=== PATIENT | female | born 1955 | race Caucasian/White ===

== ENCOUNTER 2016-08-06 11:45 | Emergency (ER) | payer BC ==
[2016-08-06] MEDS ORDERED: METHYLPREDNISOLONE PF 125MG/VIAL IVP ONE (13:48)
[2016-08-06] MEDS ORDERED: IPRATROPIUM/ALBUTEROL (0.5MG/3MG) NEB INH ONE (13:51)
[2016-08-06 14:49] LABS: BASO % 0.6 % (0-6); EOS % 7.8 % (0-6); GRAN % 57.1 % (47-80); HEMATOCRIT 40.3 % (35.0-47.0); LYMPH % 26.3 % (16-45); MEAN CELL VOLUME 89.2 fl (81-97); MEAN CORPUSCULAR HEMOGLOBIN 28.8 pg (27-33); MEAN CORPUSCULAR HGB CONC 32.3 g/dl (32-36); MEAN PLATELET VOLUME 9.6 fl (7.4-10.4); MONO % 8.2 % (0-9); PLATELET COUNT 288 K/uL (130-400); RED BLOOD COUNT 4.52 M/uL (3.80-5.40); RED CELL DISTRIBUTION WIDTH 16.4 % (11.5-14.5); WHITE BLOOD COUNT W/O DIFF 7.2 K/uL (4.2-12.2)
--- NOTE | 2016-08-06 14:59 | Emergency Department Record ---
History of Present Illness - General Chief Complaint: Cough Stated Complaint: COUGH Time Seen by Provider: 08/06/16 13:42 Source: Patient Mode of Arrival: Ambulatory Limitations: No limitations - History of Present Illness Initial Comments: pt has been sick for a month and feels she is not getting any better. she has a prod green cough, sob, rib pain from coughing. she went to an urgent care a week ago and is on levaquin, steroids. MD Complaint: Cough, Nasal congestion, Rhinorrhea Onset/Timin -: Month(s) Severity: Mild Consistency: Constant Context: Sick contacts Associated Symptoms: Cough, Hoarseness, Nasal congestion, Rhinorrhea, Shortness of breath - Related Data Home Medications Medication Instructions Recorded Confirmed Last Taken Aspirin [Aspir-Low] 81 mg PO DAILY 07/16/16 08/06/16 08/06/16 Chlorthalidone 25 mg PO DAILY 07/16/16 08/06/16 08/06/16 Levothyroxine Sodium [Synthroid] 112 mcg PO DAILY 07/16/16 08/06/16 08/06/16 Magnesium Oxide [Meza] 500 mg PO DAILY 07/16/16 08/06/16 08/06/16 Potassium Chloride [Klor-Con] 20 meq PO DAILY 07/16/16 08/06/16 08/06/16 Propranolol HCl [Inderal LA] 160 mg PO DAILY 07/16/16 08/06/16 08/06/16 Risperidone [Risperdal] 1 mg PO DAILY 07/16/16 08/06/16 08/05/16 Sertraline HCl [Zoloft] 25 mg PO DAILY 07/16/16 08/06/16 08/05/16 Albuterol Sulfate [Ventolin Hfa] 1 - 2 puff IH .EVERY 4-6 HOURS PRN 08/06/1606/2308/06/16 Levofloxacin [Levaquin Tab] 500 mg PO DAILY 08/06/16 08/06/16 08/06/16 Previous Rx's Medication Instructions Recorded Fluticasone Propionate [Flonase] 2 spray EACH NARES DAILY #1 bottle 07/16/16 Doxycycline Hyclate [Doxycycline] 100 mg PO BID #14 cap 08/06/16 Allergies Allergy/AdvReac Type Severity Reaction Status Date / Time Iodinated Contrast Media - Allergy Severe HIVES Verified 08/06/16 13:14 Oral and Penicillins Allergy Severe HIVES Verified 08/06/16 13:14 Travel Screening - Travel/Exposure Within Last 30 Days Have you traveled within the last 30 days?: No Review of Systems Reviewed: No additional complaints except as noted below Constitutional: Reports: As per HPI. Denies: Chills, Fever, Malaise, Night sweats, Weakness, Weight change Eyes: Reports: As per HPI. Denies: Eye discharge, Eye pain, Photophobia, Vision change ENT: Reports: As per HPI. Denies: Congestion, Dental pain, Ear pain, Epistaxis , Hearing loss, Throat pain Respiratory: Reports: As per HPI. Denies: Cough, Dyspnea, Hemoptysis, Stridor, Wheezes Cardiovascular: Reports: As per HPI. Denies: Arrhythmia, Chest pain, Dyspnea on exertion, Edema, Murmurs, Orthopnea, Palpitations, Paroxysmal nocturnal dyspnea, Rheumatic Fever, Syncope Endocrine: Reports: As per HPI. Denies: Fatigue, Heat or cold intolerance, Polydipsia, Polyuria Gastrointestinal: Reports: As per HPI. Denies: Abdominal pain, Constipation, Diarrhea, Hematemesis, Hematochezia, Melena, Nausea, Vomiting Genitourinary: Reports: As per HPI. Denies: Abnormal menses, Discharge, Dyspareunia, Dysuria, Frequency, Hematuria, Incontinence, Retention, Urgency Musculoskeletal: Reports: As per HPI. Denies: Arthralgia, Back pain, Gout, Joint swelling, Myalgia, Neck pain Skin: Reports: As per HPI. Denies: Bruising, Change in color, Change in hair/ nails, Lesions, Pruritus, Rash Neurological: Reports: As per HPI. Denies: Abnormal gait, Confusion, Headache, Numbness, Paresthesias, Seizure, Tingling, Tremors, Vertigo, Weakness Psychiatric: Reports: As per HPI. Denies: Anxiety, Auditory hallucinations, Depression, Homicidal thoughts, Suicidal thoughts, Visual hallucinations Hematological/Lymphatic: Reports: As per HPI. Denies: Anemia, Blood Clots, Easy bleeding, Easy bruising, Swollen glands Past Medical History - SOCIAL HISTORY Smoking Status: Never smoker Alcohol Use: None Drug Use: None - RESPIRATORY Hx Respiratory Disorders: No Hx Sleep Apnea: Yes Hx of CPAP: Yes - CARDIOVASCULAR Hx Cardio Disorders: Yes Hx Hypertension: Yes - NEURO Hx Neuro Disorders: Yes Hx Headaches: Yes - GI Hx GI Disorders: Yes Hx Reflux: Yes Hx Ulcer: Yes - Hx Genitourinary Disorders: No - ENDOCRINE Hx Endocrine Disorders: Yes Hx Diabetes: (pre-diabetic) Hx Thyroid Disease: Yes - MUSCULOSKELETAL Hx Musculoskeletal Disorders: No - PSYCH Hx Psych Problems: No - HEMATOLOGY/ONCOLOGY Hx Hematology/Oncology Disorders: No Family Medical History Any Significant Family History?: No Physical Exam - General General Appearance: Alert, Oriented x3, Cooperative, Mild distress - Head Head exam: Normal inspection - Eye Eye exam: Normal appearance, PERRL, EOMI Pupils: Normal accommodation - ENT ENT exam: Normal exam, Mucous membranes moist, Normal external ear exam, Normal orophraynx, TM's normal bilaterally Ear exam: Normal external inspection. negative: External canal tenderness Nasal Exam: Normal inspection. negative: Discharge, Sinus tenderness Mouth exam: Normal external inspection, Tongue normal Teeth exam: Normal inspection. negative: Dental caries Throat exam: Normal inspection. negative: Tonsillar erythema, Tonsillar exudate - Neck Neck exam: Normal inspection, Full ROM. negative: Tenderness - Respiratory Respiratory exam: Wheezes. negative: Respiratory distress - Cardiovascular Cardiovascular Exam: Regular rate, Normal rhythm, Normal heart sounds - GI/Abdominal GI/Abdominal exam: Soft, Normal bowel sounds. negative: Tenderness - Rectal Rectal exam: Deferred - exam: Deferred - Extremities Extremities exam: Normal inspection, Full ROM, Normal capillary refill. negative: Tenderness - Back Back exam: Reports: Normal inspection, Full ROM. Denies: Muscle spasm, Rash noted, Tenderness - Neurological Neurological exam: Alert, CN II-XII intact, Normal gait, Oriented X3 - Psychiatric Psychiatric exam: Normal affect, Normal mood - Skin Skin exam: Dry, Intact, Normal color, Warm Course Vital Signs 08/06/16 08/06/16 13:06 14:25 Temperature 98.0 F Pulse Rate 71 66 Respiratory 20 16 Rate Blood Pressure 130/80 Pulse Ox 97 96 Medical Decision Making - Lab Data Result diagrams: 08/06/16 14:20 08/06/16 14:20 Disposition Disposition: Discharge Clinical Impression: Pneumonia Qualifiers: Pneumonia type: due to unspecified organism Laterality: right Lung location: lower lobe of lung Qualified Code(s): J18.1 - Lobar pneumonia, unspecified organism Disposition: Home, Self-Care Condition: (1) Good Instructions: Community-acquired Pneumonia (ED) Additional Instructions: follow up with family doctor. return sooner if worse Prescriptions: Doxycycline Hyclate [Doxycycline] 100 mg PO BID #14 cap Forms: Patient Portal Access
[2016-08-06 15:00] LABS: ANION GAP 9.1 (7-16); BLOOD UREA NITROGEN 17 mg/dL (7-17); CARBON DIOXIDE 32.9 mmol/L (22-30); CREATININE 0.8 mg/dL (0.52-1.04); EST GLOMERULAR FILTRATION RATE > 60 ml/min; GLUCOSE,RANDOM 100 mg/dL (70-110)
[2016-08-06] MEDS ORDERED: POTASSIUM CHLORIDE 20 MEQ TABLET PO ONE (15:20)
== END 2016-08-06 16:26 | disposition home or self-care (01) ==
LOC: ER 11:45
DX: J18.1 Lobar pneumonia, unspecified organism (principal); R06.02 Shortness of breath
CPT/HCPCS: 71020; 80048; 83880; 85025; 85379; 94640; 96374; 99284; J2930

== ENCOUNTER 2016-08-09 15:42 | Inpatient (IN) | payer BC ==
[2016-08-09] MEDS ORDERED: 0.9 % SODIUM CHLORIDE 1000ML 1,000 ML IV PRN (16:06)
[2016-08-09] MEDS: CEFTRIAXONE SODIUM 1 GM in 0.9 % SODIUM CHLORIDE 100ML 100 ML IVPB SCH (17:21)
[2016-08-09 17:40] LABS: BASO % 0.7 % (0-6); EOS % 7.6 % (0-6); GRAN % 52.1 % (47-80); HEMATOCRIT 41.3 % (35.0-47.0); HEMOGLOBIN 13.6 gm/dl (11.6-16.0); LYMPH % 32.7 % (16-45); MEAN CELL VOLUME 89.6 fl (81-97); MEAN CORPUSCULAR HEMOGLOBIN 29.5 pg (27-33); MEAN CORPUSCULAR HGB CONC 32.9 g/dl (32-36); MEAN PLATELET VOLUME 9.8 fl (7.4-10.4); MONO % 6.9 % (0-9); PLATELET COUNT 287 K/uL (130-400); RED BLOOD COUNT 4.61 M/uL (3.80-5.40); RED CELL DISTRIBUTION WIDTH 16.7 % (11.5-14.5); WHITE BLOOD COUNT W/O DIFF 7.4 K/uL (4.2-12.2)
[2016-08-09 17:47] LABS: ALB/GLOB RATIO 1.4 (1.1-1.8); ALBUMIN 4.6 gm/dL (3.5-5.0); ALKALINE PHOSPHATASE 78 U/L (38-126); ALT/SGPT 39 U/L (9-52); ANION GAP 11.1 (7-16); AST/SGOT 33 U/L (14-36); BILIRUBIN,TOTAL 0.48 mg/dL (0.2-1.3); BLOOD UREA NITROGEN 16 mg/dL (7-17); C-REACTIVE PROTEIN 1.7 mg/dL (0.0-0.9); CARBON DIOXIDE 32.9 mmol/L (22-30); CREATININE 0.8 mg/dL (0.52-1.04); EST GLOMERULAR FILTRATION RATE > 60 ml/min; GLUCOSE,RANDOM 97 mg/dL (70-110); TOTAL PROTEIN 7.8 gm/dL (6.3-8.2)
[2016-08-09 17:48] LABS: INFLUENZA A NEGATIVE (NEGATIVE); INFLUENZA B NEGATIVE (NEGATIVE)
[2016-08-09] MEDS ORDERED: PATIENT OWN MED: PO SCH (18:45)
[2016-08-09] MEDS: AZITHROMYCIN 500 MG in 0.9 % SODIUM CHLORIDE 250ML 250 ML IVPB SCH (18:56)
[2016-08-09] MEDS ORDERED: ATORVASTATIN 20 MG TABLET PO SCH ×2 (22:00)
[2016-08-09] MEDS ORDERED: RISPERIDONE 1 MG PO SCH (22:00)
[2016-08-09] MEDS: PATIENT OWN MED: ASPIRIN 81 MG PO SCH (22:20)
[2016-08-09] MEDS: TEMAZEPAM 15 MG CAPSULE PO PRN (22:25)
[2016-08-09] MEDS: IPRATROPIUM/ALBUTEROL (0.5MG/3MG) NEB INH PRN (22:28)
[2016-08-10] MEDS: CEFTRIAXONE SODIUM 1 GM in 0.9 % SODIUM CHLORIDE 100ML 100 ML IVPB SCH ×2 (04:46→16:20)
[2016-08-10] MEDS: IPRATROPIUM/ALBUTEROL (0.5MG/3MG) NEB INH PRN ×4 (06:09→21:50)
[2016-08-10 06:22] LABS: BASO % 0.7 % (0-6); EOS % 7.9 % (0-6); GRAN % 42.5 % (47-80); HEMATOCRIT 37.2 % (35.0-47.0); HEMOGLOBIN 12.2 gm/dl (11.6-16.0); LYMPH % 39.5 % (16-45); MEAN CELL VOLUME 90.5 fl (81-97); MEAN CORPUSCULAR HEMOGLOBIN 29.7 pg (27-33); MEAN CORPUSCULAR HGB CONC 32.8 g/dl (32-36); MEAN PLATELET VOLUME 9.6 fl (7.4-10.4); MONO % 9.4 % (0-9); PLATELET COUNT 238 K/uL (130-400); RED BLOOD COUNT 4.11 M/uL (3.80-5.40); RED CELL DISTRIBUTION WIDTH 16.7 % (11.5-14.5); WHITE BLOOD COUNT W/O DIFF 6.7 K/uL (4.2-12.2)
[2016-08-10 06:37] LABS: ALB/GLOB RATIO 1.3 (1.1-1.8); ALBUMIN 3.7 gm/dL (3.5-5.0); ALKALINE PHOSPHATASE 66 U/L (38-126); ALT/SGPT 36 U/L (9-52); ANION GAP 9.2 (7-16); AST/SGOT 29 U/L (14-36); BILIRUBIN,TOTAL 0.33 mg/dL (0.2-1.3); BLOOD UREA NITROGEN 13 mg/dL (7-17); CARBON DIOXIDE 27.8 mmol/L (22-30); CREATININE 0.7 mg/dL (0.52-1.04); EST GLOMERULAR FILTRATION RATE > 60 ml/min; GLUCOSE,RANDOM 89 mg/dL (70-110); TOTAL PROTEIN 6.6 gm/dL (6.3-8.2)
[2016-08-10] MEDS: PATIENT OWN MED: LEVOTHYROXINE 112 MCG PO SCH (06:48)
--- NOTE | 2016-08-10 07:23 | CT SCAN REPORT ---
EXAM: CT OF THE CHEST WITHOUT CONTRAST HISTORY: CHEST CONGESTION. TECHNIQUE: CT of the chest without contrast was obtained. Comparison: Chest x-ray from 08/06/16. FINDINGS: Evaluation of the mediastinum and hilum is limited due to lack of IV contrast. No convincing evidence for mediastinal or hilar adenopathy. Minimal coronary artery calcification. The heart and pericardium are otherwise unremarkable. Limited evaluation of the upper abdomen shows post cholecystectomy changes. Nodularity of the left adrenal gland measuring 1.4 x 1.3 cm. The osseous structures are grossly intact. There is no pneumothorax. The visualized airways are patent. Subsegmental atelectasis within the lingula. Minimal ground glass opacity with reticulonodular change in the posterior right lung base. No effusion. IMPRESSION: 1. MINIMAL RETICULONODULAR CHANGE AND GROUND GLASS OPACITY IN THE POSTERIOR RIGHT LUNG BASE CONSISTENT WITH MINOR PNEUMONITIS. RECOMMEND CONTINUED FOLLOW- UP UNTIL RESOLUTION. 2. 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 THIS COULD BE FURTHER ASSESSED NONEMERGENTLY WITH MRI. JOB NUMBER: [id number] [facility]
--- NOTE | 2016-08-10 07:40 | History & Physical ---
History of Present Illness - Date of Service Date of Service for History & Physical: 08/10/16 - History of Present Illness Admitting Diagnosis: pneumonia; Failed outpatient treatment History of Present Illness: 60yo female with CC of cough with shortness of breath and fatigue. She has a history of HTN, CLAUDIA, GERD, migraines, hypothyroidism, melanoma. She was diagnosed with pneumonia about 3-4 weeks ago. Patient presented to [facility] last evening with fatigue, cough and shortness of breath. She had been diagnosed at another urgent care with pneumonia about 3-4 weeks ago. she was started on levaquin and steroids. She completed both of those without any improvement in her symptoms. During that time, she also visited her father in his [facility] who was sick with pneumonia and flu. She decided to go to the ED 4 days ago because she was not feeling any better. She had a repeat CXR that showed persistent right posterior lobe infiltrate. her D- dimer was negative. WBC count was normal. she was prescribed doxycycline and sent home. While in [facility], patient continued to feel short of breath and having cough with wheezing. She had tried to use albuterol inhaler at home but was having minimal relief. continued to report chest congestion, but not getting anything up with her cough. She was also feeling very fatigued and hadn't been sleeping well. She was admitted for pneumonia with failed outpatient therapy. 08/10/16- Patient states she is feeling better today. She says she slept very well last night for the first time in 2 weeks. She is feeling more energetic this morning. She is not feeling nearly as short of breath as yesterday. She is still coughing but not getting anything up with the cough. She says she isn't hearing her self breath like she was yesterday. Said she could hear her chest rattling. She says she has started a new diet recently that requires her to drink a lot more water than she has. nursing states she drank at least 80oz of water last night alone. she has been taking potassium pills at home. She has reported looser than normal stool since starting this new diet. Travel Screening - Travel/Exposure Within Last 30 Days Have you traveled within the last 30 days?: No - Travel/Exposure Within Last Year Have you traveled outside the [place] in the last year?: No - Additonal Travel Details Have you been exposed to anyone with a communicable illness?: No Review of Systems Constitutional: Reports: Malaise. Denies: Chills, Fever Eyes: Denies: Eye pain ENT: Denies: Congestion, Ear pain, Throat pain Respiratory: Reports: Cough, Dyspnea, Wheezes. Denies: Stridor Cardiovascular: Denies: Arrhythmia, Chest pain, Edema, Palpitations, Syncope Endocrine: Reports: Fatigue Gastrointestinal: Denies: Abdominal pain, Constipation, Diarrhea, Nausea, Vomiting Musculoskeletal: Denies: Arthralgia, Back pain Skin: Denies: Bruising Neurological: Denies: Abnormal gait, Headache, Tingling Past Medical History - SOCIAL HISTORY Smoking Status: Never smoker Alcohol Use: Rare Drug Use: None - RESPIRATORY Hx Respiratory Disorders: Yes Hx Bronchitis: Yes (hx) Hx Pneumonia: Yes Hx Sleep Apnea: Yes Hx of CPAP: Yes (does not use) - CARDIOVASCULAR Hx Cardio Disorders: Yes Hx Hypertension: Yes (meds) Hx Irregular Heartbeat: Yes - NEURO Hx Neuro Disorders: Yes Hx Headaches: Yes (migraine) - GI Hx GI Disorders: Yes Hx Reflux: Yes Hx Ulcer: Yes - Hx Genitourinary Disorders: No Comment:: leak with coughing - ENDOCRINE Hx Endocrine Disorders: Yes Hx Diabetes: (pre-diabetic) Hx Thyroid Disease: Yes Comment:: thyroid removed, takes meds - MUSCULOSKELETAL Hx Musculoskeletal Disorders: No - PSYCH Hx Psych Problems: No - HEMATOLOGY/ONCOLOGY Hx Hematology/Oncology Disorders: No Hx Cancer: Yes (melanoma lt inner thigh removed 2015) Family Medical History Any Significant Family History?: Yes Hx HTN: Father, Mother H&P Meds/Allergies - Allergies Allergies: Allergies Allergy/AdvReac Type Severity Reaction Status Date / Time Iodinated Contrast Media - Allergy Severe HIVES Unverified 08/09/16 14:43 Oral and Penicillins Allergy Severe HIVES Unverified 08/09/16 14:43 - Home Medications Home Medications Medication Instructions Recorded Confirmed Last Taken Aspirin [Aspir-Low] 81 mg PO DAILY 07/16/16 08/09/16 08/06/16 Chlorthalidone 25 mg PO DAILY 07/16/16 08/09/16 08/06/16 Levothyroxine Sodium [Synthroid] 112 mcg PO DAILY 07/16/16 08/09/16 08/06/16 Magnesium Oxide [Meza] 500 mg PO DAILY 03/04/2208/09/16 08/06/16 Potassium Chloride [Klor-Con] 20 meq PO BID 07/16/16 08/09/16 08/06/16 Propranolol HCl [Inderal LA] 160 mg PO DAILY 07/16/16 08/09/16 08/06/16 Sertraline HCl [Zoloft] 50 mg PO DAILY 07/16/16 08/09/16 08/05/16 Albuterol Sulfate [Ventolin Hfa] 1 - 2 puff IH .EVERY 4-6 HOURS PRN 08/06/1609/2008/06/16 Atorvastatin Calcium 10 mg PO DAILY 08/09/16 08/09/16 Unknown Temazepam [Restoril] 15 mg PO QHS 08/09/16 08/09/16 Unknown Previous Rx's Medication Instructions Recorded Fluticasone Propionate [Flonase] 2 spray EACH NARES DAILY #1 bottle 07/16/16 Doxycycline Hyclate [Doxycycline] 100 mg PO BID #14 cap 08/06/16 - Active Medications Active Medications: Current Medications Albuterol/Ipratropium (Duoneb) 3 ml INH RESP.Q4H PRN PRN Reason: Wheezing Last Admin: 08/10/16 06:09 Dose: 3 ml Atorvastatin Calcium (Lipitor) 10 mg PO QHS [facility] Last Admin: 08/09/16 22:42 Dose: 10 mg Azithromycin 500 mg/ Sodium (Chloride) 250 mls @ 250 mls/hr IVPB Q24H [facility] Stop: 08/14/16 17:01 Last Admin: 08/09/16 18:56 Dose: 250 mls/hr Ceftriaxone Sodium 1 gm/ (Sodium Chloride) 100 mls @ 100 mls/hr IVPB Q12H [facility] Stop: 08/14/16 16:16 Last Admin: 08/10/16 04:46 Dose: 100 mls/hr Sodium Chloride () 1,000 mls @ 75 mls/hr IV .[id number] PRN PRN Reason: LARGE VOLUME IV Last Admin: 08/09/16 17:21 Dose: 75 mls/hr Patient Own Med: (Aspirin 81 Mg) 1 each PO DAILY [facility] Last Admin: 08/09/16 22:20 Dose: 1 each Patient Own Med: (Chlorthalidone 25 Mg) 1 each PO DAILY [facility] Patient Own Med: Levothyroxine 112 Mcg 1 each PO DAILYTHY [facility] Last Admin: 08/10/16 06:48 Dose: 1 each Patient Own Med: Magnesium Oxide 500 Mg 1 each PO DAILY [facility] Patient Own Med: Propranolol Er 160 Mg 1 each PO DAILY [facility] Patient Own Med: (Potassium 20 Meq) 1 each PO BID [facility] Patient Own Med: (Risperidone 1 Mg) 1 each PO QHS [facility] Patient Own Med: (Sertraline 25 Mg) 1 each PO DAILY [facility] Patient Own Medication () 2 each PO NOW [facility] Last Admin: 08/09/16 19:02 Dose: 2 each Temazepam (Restoril) 15 mg PO QHS PRN PRN Reason: INSOMNIA Last Admin: 08/09/16 22:25 Dose: 15 mg Physical Exam - Vital Signs Vital Signs: Vital Signs - Last 24 Hrs Temp Pulse Pulse Resp BP BP Pulse Ox 08/10/16 06:12 86 16 08/10/16 06:11 84 16 93 L 08/09/16 23:18 97.7 F 60 18 115/46 94 L 08/09/16 22:28 86 16 08/09/16 16:27 20 08/09/16 15:50 98.0 F 66 16 151/94 91 L 08/09/16 15:48 98.0 F 66 16 151/94 91 L - General General Appearance: Alert, Oriented x3, Cooperative, No acute distress - Head Head exam: Normal inspection - Eye Eye exam: Normal appearance, PERRL - ENT ENT exam: Normal exam, Mucous membranes moist, Normal external ear exam, Normal orophraynx, TM's normal bilaterally Ear exam: Normal external inspection. negative: External canal tenderness Nasal Exam: Normal inspection. negative: Discharge, Sinus tenderness Mouth exam: Normal external inspection, Tongue normal Teeth exam: Normal inspection. negative: Dental caries Throat exam: Normal inspection. negative: Tonsillar erythema, Tonsillar exudate - Neck Neck exam: Normal inspection, Full ROM. negative: Tenderness - Respiratory Respiratory exam: Rales (right lower base), Wheezes (expiratory wheeze). negative: Accessory muscle use, Respiratory distress - Cardiovascular Cardiovascular Exam: Regular rate, Normal rhythm, Normal heart sounds - GI/Abdominal GI/Abdominal exam: Soft, Normal bowel sounds. negative: Tenderness - Extremities Extremities exam: Normal inspection, Full ROM, Normal capillary refill. negative: Tenderness - Back Back exam: Reports: Normal inspection, Full ROM. Denies: Muscle spasm, Rash noted, Tenderness - Neurological Neurological exam: Alert, Normal gait, Oriented X3, Reflexes normal - Psychiatric Psychiatric exam: Normal affect, Normal mood - Skin Skin exam: Dry, Intact, Normal color, Warm Results - Labs Result Diagrams: 08/10/16 06:00 08/10/16 06:00 Labs Last 24 Hours: Laboratory Results - last 24 hr 08/09/16 08/09/16 08/09/16 17:00 17:00 17:12 WBC 7.4 RBC 4.61 Hgb 13.6 Hct 41.3 MCV 89.6 MCH 29.5 MCHC 32.9 RDW 16.7 H Plt Count 287 MPV 9.8 Gran % 52.1 Lymphocytes % 32.7 Monocytes % 6.9 Eosinophils % 7.6 H Basophils % 0.7 Sodium 134 L Potassium 3.0 L Chloride 90 L Carbon Dioxide 32.9 H Anion Gap 11.1 BUN 16 Creatinine 0.8 Estimated GFR > 60 Random Glucose 97 Calcium 9.8 Total Bilirubin 0.48 AST 33 ALT 39 Alkaline Phosphatase 78 C-Reactive Protein 1.7 H Total Protein 7.8 Albumin 4.6 Globulin 3.2 Albumin/Globulin Ratio 1.4 Influenza Type A Ag Negative Influenza Type B Ag Negative 08/10/16 08/10/16 06:00 06:00 WBC 6.7 RBC 4.11 Hgb 12.2 Hct 37.2 MCV 90.5 MCH 29.7 MCHC 32.8 RDW 16.7 H Plt Count 238 MPV 9.6 Gran % 42.5 L Lymphocytes % 39.5 Monocytes % 9.4 H Eosinophils % 7.9 H Basophils % 0.7 Sodium 132 L Potassium 2.9 L Chloride 95 L Carbon Dioxide 27.8 Anion Gap 9.2 BUN 13 Creatinine 0.7 Estimated GFR > 60 Random Glucose 89 Calcium 9.1 Total Bilirubin 0.33 AST 29 ALT 36 Alkaline Phosphatase 66 C-Reactive Protein 1.0 H Total Protein 6.6 Albumin 3.7 Globulin 2.9 Albumin/Globulin Ratio 1.3 Influenza Type A Ag Influenza Type B Ag - Imaging and Cardiology CT scan - chest Status: Report reviewed (right posterior lobe with ground glass opacity) VTE H&P Assessment - Risk for VTE Risk for VTE: Yes Risk Level: Moderate Risk Assessment Date: 08/10/16 Risk Assessment Time: 11:33 VTE Orders Placed or Will Be Placed: Yes Plan - Inpatient Certification Inpatient Certification: Admit to inpatient care: Based on my medical assessment, after consideration of patient's risk factors (age, co-morbidities and patient presenting symptoms and acuity), I expect that this patient will remain in the hospital greater than or equal to two midnights and that the services needed warrant inpatient care because: Patient Risk Factors: [age, failed outpatient treatment for pneumonia] Estimated length of stay: [24-48h] The patient may reasonably be expected to be discharged or transferred to a hospital within 96 hours after admission to [facility]. Services needed: [IV antibiotics, respiratory therapy] Post hospital care (if known): [] I certify that my determination is in accordance with my understanding of Medicare requirements for reasonable and necessary inpatient services. 08/10/16 11:33 - Detailed Diagnosis and Plan (1) Pneumonia Current Visit: No Status: Acute Qualifiers: Pneumonia type: due to unspecified organism Laterality: right Lung location: lower lobe of lung Qualified Code(s): J18.1 - Lobar pneumonia, unspecified organism Base Code: J18.9 - PNEUMONIA, UNSPECIFIED ORGANISM Comment: 08/10/16- CT of the chest showed right posterior lower lobe ground glass opacity. WBC count wnl and afebrile. Blood and sputume cultures pending. suspect this is community acquired, no MRSA history, no aspiration risks. symptomatically improving on current abx regimen. Still SOB with exertion. Oxygen saturation 91% on room air. -continue rocephin 1gm IV q12H -continue azithromycin 250mg IV q24H -continue duoneb q4H prn SOB -continue supplemental O2 to keep sat >90% -will hold off on steroids since no asthma or copd history and just finished a course about 1 week ago. -vitals q8H -repeat labs qam (2) Full code status Current Visit: Yes Status: Acute Base Code: Z78.9 - OTHER SPECIFIED HEALTH STATUS Comment: 08/10/16- patient is full code (3) DVT prophylaxis Current Visit: Yes Status: Acute Base Code: [id number] - Comment: 08/10/16- Patient is moderate risk for DVT wtih age and restricted mobility -will encourage ambulation -lovenox 40mg sq daily for prophylaxis
[2016-08-10] MEDS: GUAIFENESIN 1,200 MG TABLET PO SCH ×2 (09:40→21:18)
[2016-08-10] MEDS: PATIENT OWN MED: ASPIRIN 81 MG PO SCH ×2 (09:41→21:21)
[2016-08-10] MEDS: PATIENT OWN MED: CHLORTHALIDONE 25 MG PO SCH (09:42)
[2016-08-10] MEDS: PATIENT OWN MED: POTASSIUM 20 MEQ PO SCH ×2 (09:43→21:20)
[2016-08-10] MEDS: MAGNESIUM OXIDE 500 MG PO SCH (09:43)
[2016-08-10] MEDS: PROPRANOLOL 160 MG PO SCH (09:44)
[2016-08-10] MEDS: PATIENT OWN MED: SERTRALINE 50 MG PO SCH (09:45)
[2016-08-10] MEDS: BENZONATATE 100 MG CAPSULE PO PRN ×2 (13:36→21:21)
[2016-08-10] MEDS ORDERED: AZITHROMYCIN 250 MG in 0.9 % SODIUM CHLORIDE 250ML 250 ML IVPB SCH (17:00)
[2016-08-10] MEDS: AZITHROMYCIN 500 MG in 0.9 % SODIUM CHLORIDE 250ML 250 ML IVPB SCH (17:22)
[2016-08-10] MEDS ORDERED: AZITHROMYCIN 250 MG TABLET PO SCH (18:15)
[2016-08-10] MEDS: TEMAZEPAM 15 MG CAPSULE PO PRN (21:17)
[2016-08-10] MEDS ORDERED: PATIENT OWN MED: ATORVASTATIN 10 MG PO SCH (22:00)
[2016-08-10] MEDS ORDERED: ENOXAPARIN 40 MG/0.4 ML SYR SQ SCH (22:00)
[2016-08-11] MEDS: CEFTRIAXONE SODIUM 1 GM in 0.9 % SODIUM CHLORIDE 100ML 100 ML IVPB SCH (04:24)
[2016-08-11 06:22] LABS: BASO % 0.8 % (0-6); EOS % 8.8 % (0-6); HEMOGLOBIN 12.2 gm/dl (11.6-16.0); LYMPH % 36.1 % (16-45); MEAN CELL VOLUME 90.7 fl (81-97); MEAN CORPUSCULAR HEMOGLOBIN 29.9 pg (27-33); MEAN PLATELET VOLUME 9.7 fl (7.4-10.4); MONO % 9.3 % (0-9); PLATELET COUNT 216 K/uL (130-400); RED BLOOD COUNT 4.08 M/uL (3.80-5.40); RED CELL DISTRIBUTION WIDTH 16.6 % (11.5-14.5); WHITE BLOOD COUNT W/O DIFF 5.9 K/uL (4.2-12.2)
[2016-08-11 06:35] LABS: ALB/GLOB RATIO 1.2 (1.1-1.8); ALBUMIN 3.6 gm/dL (3.5-5.0); ALKALINE PHOSPHATASE 63 U/L (38-126); ALT/SGPT 36 U/L (9-52); ANION GAP 7.6 (7-16); AST/SGOT 25 U/L (14-36); BLOOD UREA NITROGEN 11 mg/dL (7-17); C-REACTIVE PROTEIN 1.7 mg/dL (0.0-0.9); CARBON DIOXIDE 30.4 mmol/L (22-30); CREATININE 0.7 mg/dL (0.52-1.04); EST GLOMERULAR FILTRATION RATE > 60 ml/min; GLUCOSE,RANDOM 85 mg/dL (70-110); TOTAL PROTEIN 6.5 gm/dL (6.3-8.2)
[2016-08-11] MEDS: PATIENT OWN MED: LEVOTHYROXINE 112 MCG PO SCH (06:46)
[2016-08-11] MEDS: IPRATROPIUM/ALBUTEROL (0.5MG/3MG) NEB INH PRN (07:46)
[2016-08-11] MEDS: PATIENT OWN MED: CHLORTHALIDONE 25 MG PO SCH (09:45)
[2016-08-11] MEDS: GUAIFENESIN 1,200 MG TABLET PO SCH (09:45)
[2016-08-11] MEDS: PATIENT OWN MED: ASPIRIN 81 MG PO SCH (09:45)
[2016-08-11] MEDS: PROPRANOLOL 160 MG PO SCH (09:46)
[2016-08-11] MEDS: PATIENT OWN MED: SERTRALINE 50 MG PO SCH (09:46)
[2016-08-11] MEDS: PATIENT OWN MED: POTASSIUM 20 MEQ PO SCH (09:46)
[2016-08-11] MEDS: MAGNESIUM OXIDE 500 MG PO SCH (09:46)
[2016-08-11] MEDS ORDERED: AZITHROMYCIN 500 MG TABLET PO SCH (10:00)
--- NOTE | 2016-08-11 11:13 | Discharge Summary ---
Providers Discharge Summary Date: 08/11/16 Date of admission: 08/09/16 15:42 Expected Date of Discharge: 08/11/16 Attending physician: JOSE BALNCO Primary care physician: EVANS ROBERTS M.D. Physical Exam - Vital Signs Vital Signs: Vital Signs - Last 24 Hrs Temp Pulse Pulse Resp BP BP Pulse Ox 08/11/16 09:30 97.7 F 58 L 16 116/66 95 08/11/16 07:45 97.9 F 59 L 16 119/65 95 08/10/16 21:53 80 15 08/10/16 20:00 98.4 F 63 18 121/65 94 L 08/10/16 15:09 76 18 08/10/16 14:25 97.3 F L 65 16 114/77 92 L 08/10/16 11:10 98.0 F 71 16 146/80 93 L - General General Appearance: Alert, Oriented x3, Cooperative, No acute distress - Head Head exam: Normal inspection - Eye Eye exam: Normal appearance, PERRL - ENT ENT exam: Normal exam, Mucous membranes moist, Normal external ear exam, Normal orophraynx, TM's normal bilaterally Ear exam: Normal external inspection. negative: External canal tenderness Nasal Exam: Normal inspection. negative: Discharge, Sinus tenderness Mouth exam: Normal external inspection, Tongue normal Teeth exam: Normal inspection. negative: Dental caries Throat exam: Normal inspection. negative: Tonsillar erythema, Tonsillar exudate - Neck Neck exam: Normal inspection, Full ROM. negative: Tenderness - Respiratory Respiratory exam: Rales (right lower base), Wheezes (expiratory wheeze). negative: Accessory muscle use, Respiratory distress - Cardiovascular Cardiovascular Exam: Regular rate, Normal rhythm, Normal heart sounds - GI/Abdominal GI/Abdominal exam: Soft, Normal bowel sounds. negative: Tenderness - Extremities Extremities exam: Normal inspection, Full ROM, Normal capillary refill. negative: Tenderness - Back Back exam: Reports: Normal inspection, Full ROM. Denies: Muscle spasm, Rash noted, Tenderness - Neurological Neurological exam: Alert, Normal gait, Oriented X3, Reflexes normal - Psychiatric Psychiatric exam: Normal affect, Normal mood - Skin Skin exam: Dry, Intact, Normal color, Warm Hospitalization - Hospitalization Admission Diagnosis: pneumonia; Failed outpatient treatment - Problem List/Discharge Diagnosis (1) Pneumonia Current Visit: No Status: Acute Discharge Diagnosis: Pneumonia type: due to unspecified organism Laterality: right Lung location: lower lobe of lung Qualified Code(s): J18.1 - Lobar pneumonia, unspecified organism Base Code: J18.9 - PNEUMONIA, UNSPECIFIED ORGANISM Comment: 08/11/16- Improving clinically with decreased cough and shortness of breath. CT of the chest showed right posterior lower lobe ground glass opacity. WBC count wnl and afebrile. Blood and sputum cultures still pending. suspect this is community acquired, no MRSA history, no aspiration risks. symptomatically improving on current abx regimen. oxygen saturation 94% on room air. -transition to cefdinir 300mg po Q12H for 8 more days -continue azithromycin 250mg po daily for 3 more days -transition to albuterol inhaler 1-2 puffs q4H prn shortness of breath -continue mucinex 1200mg po bid for 10 days -script for tessalon perles 200mg po up to three times daily as needed for cough -discussed reasons to return to the ED including worsening fatigue, shortness of breath, fever, chest pain, or worsening cough. She voiced her understanding. -follow up in 1-2 weeks in the [facility]. global compensation director will contact her on Sunday to schedule and Maryam, patient care representative will as well. (2) Full code status Current Visit: Yes Status: Acute Base Code: Z78.9 - OTHER SPECIFIED HEALTH STATUS Comment: 08/11/16- patient is full code (3) DVT prophylaxis Current Visit: Yes Status: Acute Base Code: [id number] - Comment: 08/11/16- Patient is moderate risk for DVT wtih age and restricted mobility -will encourage ambulation -lovenox 40mg sq was given daily for prophylaxis - Hospitalization Course Hospital Course: 60yo female with CC of cough with shortness of breath and fatigue. She has a history of HTN, CLAUDIA, GERD, migraines, hypothyroidism, melanoma. She was diagnosed with pneumonia about 3-4 weeks ago. Patient presented to [facility] last evening with fatigue, cough and shortness of breath. She had been diagnosed at another urgent care with pneumonia about 3-4 weeks ago. she was started on levaquin and steroids. She completed both of those without any improvement in her symptoms. During that time, she also visited her father in his long term who was sick with pneumonia and flu. She decided to go to the ED 4 days ago because she was not feeling any better. She had a repeat CXR that showed persistent right posterior lobe infiltrate. her D- dimer was negative. WBC count was normal. she was prescribed doxycycline and sent home. While in [facility], patient continued to feel short of breath and having cough with wheezing. She had tried to use albuterol inhaler at home but was having minimal relief. continued to report chest congestion, but not getting anything up with her cough. She was also feeling very fatigued and hadn't been sleeping well. She was admitted for pneumonia with failed outpatient therapy. 08/10/16- Patient states she is feeling better today. She says she slept very well last night for the first time in 2 weeks. She is feeling more energetic this morning. She is not feeling nearly as short of breath as yesterday. She is still coughing but not getting anything up with the cough. She says she isn't hearing her self breath like she was yesterday. Said she could hear her chest rattling. She says she has started a new diet recently that requires her to drink a lot more water than she has. nursing states she drank at least 80oz of water last night alone. she has been taking potassium pills at home. She has reported looser than normal stool since starting this new diet. 08/11/16- Patient continues to improve. She is now starting to get some yellow sputum up with her cough which is relieving her feeling of chest congestion. She says the cough is less frequent and she is not having "spells of coughing" like she had been. Has been sleeping well the past 2 nights. Shortness of breath has improved significantly. Has been up walking the hallways with minimal dyspnea. Has more energy than she did when she was admitted. Feeling ready to go home. Additionally, patient just found out her father's health has turned for the worse and she will be needing to go visit him. We discussed making sure she has her scripts filled and continues her antibiotics. She will be establishing with the [facility] and we will contact patient on Sunday to make a hospital discharge follow up appointment. I also made her aware of our social work services for grief and stress counseling. Procedures: Imaging and X-Rays 08/09/16 16:02 CHEST WO CONTRAST [CT] Stat Abnormal Labs: Abnormal Lab Results 08/09/16 08/09/16 08/10/16 Range/Units 17:00 17:00 06:00 RDW 16.7 H 16.7 H (11.5-14.5) % Gran % 42.5 L (47-80) % Monocytes % 9.4 H (0-9) % Eosinophils % 7.6 H 7.9 H (0-6) % Sodium 134 L (136-145) mmol/L Potassium 3.0 L (3.5-5.1) mmol/L Chloride 90 L (98-107) mmol/L Carbon Dioxide 32.9 H (22-30) mmol/L C-Reactive Protein 1.7 H (0.0-0.9) mg/dL 08/10/16 08/11/16 08/11/16 Range/Units 06:00 06:00 06:00 RDW 16.6 H (11.5-14.5) % Gran % 45.0 L (47-80) % Monocytes % 9.3 H (0-9) % Eosinophils % 8.8 H (0-6) % Sodium 132 L (136-145) mmol/L Potassium 2.9 L 2.9 L (3.5-5.1) mmol/L Chloride 95 L (98-107) mmol/L Carbon Dioxide 30.4 H (22-30) mmol/L C-Reactive Protein 1.0 H 1.7 H (0.0-0.9) mg/dL Discharge Medications - Discharge Medications Prescriptions: Temazepam [Restoril] 15 mg PO QHS #30 cap Azithromycin 250 mg PO DAILY #3 tablet Guaifenesin [Guaifenesin ER] 1,200 mg PO BID #20 tab.er.12h Cefdinir [Omnicef] 300 mg PO BID #16 cap Benzonatate [Tessalon Perles] 200 mg PO TID PRN #30 capsule PRN Reason: Cough Albuterol Sulfate [Ventolin Hfa] 1 - 2 puff IH .EVERY 4-6 HOURS PRN #1 inhaler PRN Reason: Difficulty In Breathing Home Medications: Ambulatory Orders Aspirin [Aspir-Low] 81 mg PO DAILY 07/16/16 [Last Taken 08/06/16] Chlorthalidone 25 mg PO DAILY 07/16/16 [Last Taken 08/06/16] Fluticasone Propionate [Flonase] 2 spray EACH NARES DAILY #1 bottle 07/16/16 [ Last Taken 08/05/16] Levothyroxine Sodium [Synthroid] 112 mcg PO DAILY 07/16/16 [Last Taken 08/06/16] Magnesium Oxide [Meza] 500 mg PO DAILY 07/16/16 [Last Taken 08/06/16] Potassium Chloride [Klor-Con] 20 meq PO BID 07/16/16 [Last Taken 08/06/16] Propranolol HCl [Inderal LA] 160 mg PO DAILY 07/16/16 [Last Taken 08/06/16] Sertraline HCl [Zoloft] 50 mg PO DAILY 07/16/16 [Last Taken 08/05/16] Atorvastatin Calcium 10 mg PO DAILY 08/09/16 [Last Taken Unknown] Albuterol Sulfate [Ventolin Hfa] 1 - 2 puff IH .EVERY 4-6 HOURS PRN #1 inhaler 08/11/16 [Last Taken Unknown] Azithromycin 250 mg PO DAILY #3 tablet 08/11/16 [Last Taken Unknown] Benzonatate [Tessalon Perles] 200 mg PO TID PRN #30 capsule 08/11/16 [Last Taken Unknown] Cefdinir [Omnicef] 300 mg PO BID #16 cap 08/11/16 [Last Taken Unknown] Guaifenesin [Guaifenesin ER] 1,200 mg PO BID #20 tab.er.12h 08/11/16 [Last Taken Unknown] Temazepam [Restoril] 15 mg PO QHS #30 cap 08/11/16 [Last Taken Unknown] Discharge Plan - Discharge Instructions Activity at Discharge: Resume Usual Activities As Tolerated Diet at Discharge: Low Fat, Low Cholesterol, Low Salt Diet Additional Instructions: Follow up in the [facility] in 1-2 weeks Please call our office [phone] on Sunday to schedule Continue cefdinir 300mg by mouth twice daily for 8 more days continue azithromycin 250mg by mouth daily for 3 more days May continue to use: mucinex 1200mg twice daily for up to 10 more days tessalon perles 200mg up to three times daily for cough suppression albuterol inhaler 1-2 puffs every 4 hours as needed for shortness of breath Please call with any questions or concerns. Return to ED at any time if you have worsening shortness of breath, cough, fatigue or fever.
[2016-08-11] MEDS ORDERED: POTASSIUM CHLORIDE 20 MEQ TABLET PO ONE (12:14)
== END 2016-08-11 12:45 | disposition home or self-care (01) | DRG 195 ==
LOC: MEDSURG 15:42
PROVIDERS: ADMIT Family Medicine; ATTEND Family Medicine
DX: J18.9 Pneumonia, unspecified organism (principal); R53.83 Other fatigue; I10 Essential (primary) hypertension; E03.9 Hypothyroidism, unspecified; Z85.820 Personal history of malignant melanoma of skin; R73.03 Prediabetes; G47.33 Obstructive sleep apnea (adult) (pediatric)
CPT/HCPCS: 71250; 80053; 85025; 86140; 87040; 87070; 87400; 94640; 94760; 99223; 99239; J0456; J1650; J7050

== ENCOUNTER 2017-03-29 08:49 | Emergency (ER) | payer BC ==
--- NOTE | 2017-03-29 09:21 | Emergency Department Record ---
History of Present Illness - General Chief Complaint: Abdominal Pain Stated Complaint: ABD PAIN Time Seen by Provider: 03/29/17 09:21 Source: Patient Mode of Arrival: Ambulatory - History of Present Illness Initial Comments: The patient is here due to a 4 day hx of lower AP. She describes the pain as an aching, sharp, constant pain which is worse with any movement. She denies any upper AP, nausea, vomiting, diarrhea, fever, or dysuria. The patient has no hx of similar issues but has had her GB, Appendix removed and a Csection. Complaint: Abdominal pain Onset/Timin -: Days(s) Location: Suprapubic Radiation: None Quality: Aching, Stabbing Consistency: Constant Improves With: Nothing Worsens With: Movement, Rest Associated Symptoms: Denies other symptoms, Other - Related Data Previous Rx's Medication Instructions Recorded Fluticasone Propionate [Flonase] 2 spray EACH NARES DAILY #1 bottle 07/16/16 Albuterol Sulfate [Ventolin Hfa] 1 - 2 puff IH .EVERY 4-6 HOURS PRN 08/11/16 #1 inhaler Ciprofloxacin HCl [Cipro] 500 mg PO Q12HR #14 tablet 03/29/17 Metronidazole [Flagyl] 500 mg PO TID #21 tablet 03/29/17 Naproxen [Naprosyn] 250 mg PO BID #14 tablet 03/29/17 Allergies Allergy/AdvReac Type Severity Reaction Status Date / Time Iodinated Contrast- Oral and Allergy Severe HIVES Verified 03/29/17 09:12 IV Dye Penicillins Allergy Severe HIVES Verified 03/29/17 09:12 bee venom protein (honey bee) Allergy SWELLING Verified 03/29/17 09:12 (GENERAL) Travel Screening - Travel/Exposure Within Last 30 Days Have you traveled within the last 30 days?: No - Travel/Exposure Within Last Year Have you traveled outside the [place] in the last year?: No - Additonal Travel Details Have you been exposed to anyone with a communicable illness?: No - Travel Symptoms Symptom Screening: None Review of Systems Constitutional: Denies: Chills, Fever Eyes: Denies: Eye discharge ENT: Denies: Congestion Respiratory: Denies: Cough, Dyspnea Past Medical History - SOCIAL HISTORY Smoking Status: Never smoker Alcohol Use: None Drug Use: None - RESPIRATORY Hx Respiratory Disorders: Yes Hx Asthma: Yes (allergy induced) Hx Bronchitis: Yes (hx) Hx Pneumonia: Yes Hx Sleep Apnea: Yes Hx of CPAP: Yes (does not use) - CARDIOVASCULAR Hx Cardio Disorders: Yes Hx Hypertension: Yes (meds) Hx Irregular Heartbeat: Yes - NEURO Hx Neuro Disorders: Yes Hx Headaches: Yes (migraine) - GI Hx GI Disorders: Yes Hx Reflux: Yes Hx Ulcer: Yes - Hx Genitourinary Disorders: No Comment:: leak with coughing - ENDOCRINE Hx Endocrine Disorders: Yes Hx Diabetes: (pre-diabetic) Hx Thyroid Disease: Yes Comment:: thyroid removed, takes meds - MUSCULOSKELETAL Hx Musculoskeletal Disorders: No - PSYCH Hx Psych Problems: No - HEMATOLOGY/ONCOLOGY Hx Hematology/Oncology Disorders: No Hx Cancer: Yes (melanoma lt inner thigh removed 2015) Family Medical History Any Significant Family History?: No Hx HTN: Father, Mother Physical Exam - General General Appearance: Alert, Oriented x3, Cooperative, No acute distress - Head Head exam: Atraumatic, Normocephalic, Normal inspection - Eye Eye exam: Normal appearance, PERRL - ENT Throat exam: Normal inspection. negative: Tonsillar erythema, Tonsillar exudate - Neck Neck exam: Normal inspection, Full ROM. negative: Tenderness - Respiratory Respiratory exam: Normal lung sounds bilaterally. negative: Respiratory distress - Cardiovascular Cardiovascular Exam: Regular rate, Normal rhythm, Normal heart sounds - GI/Abdominal GI/Abdominal exam: Soft, Normal bowel sounds, Tenderness (There is mild suprapubic tenderness with no guarding or rebound.). negative: Distended, Guarding - Extremities Extremities exam: Normal inspection, Full ROM, Normal capillary refill. negative: Tenderness Course Vital Signs 03/29/17 09:03 Temperature 97.6 F Pulse Rate 72 Respiratory 16 Rate Blood Pressure 130/71 Pulse Ox 95 - Reevaluation(s) Reevaluation #1: The patient is doing better at this time and is in less pain after the Toradol. I did explain the CT results to the patient and the need for treatment of her Diverticulitis. 03/29/17 10:41 Reevaluation #2: The patient is feeling much better at this time. She denies any pain or discomfort. The patient is able to ambulate with no pain or discomfort. We will discharge the patient on Cipro and Flagyl and have her see her PCP early next week. 03/29/17 11:54 Medical Decision Making - Data Complexity MDM Data: Labs Ordered and/or Reviewed, X-Ray Ordered and/or Reviewed - Lab Data Result diagrams: 03/29/17 09:40 03/29/17 09:40 - Radiology Data Radiology results: Report reviewed (CT: Diverticulitis in the midline of the mid and distal sigmoid colon with adjacent fat stranding. No abscess or extraluminal air.) Disposition Disposition: Discharge Clinical Impression: Diverticulitis large intestine Qualifiers: Diverticulitis bleeding: without bleeding Diverticulitis complication: without perforation or abscess Qualified Code(s): K57.32 - Diverticulitis of large intestine without perforation or abscess without bleeding Disposition: Home, Self-Care Condition: (1) Good Instructions: Diverticulitis (ED) Additional Instructions: Please take the Naprosyn for pain along with the Cipro and Flagyl. Please see your PCP early next week for recheck. Return to the ER for any worsening pain, fever, or vomiting. Prescriptions: Ciprofloxacin HCl [Cipro] 500 mg PO Q12HR #14 tablet Metronidazole [Flagyl] 500 mg PO TID #21 tablet Naproxen [Naprosyn] 250 mg PO BID #14 tablet Forms: Patient Portal Access Time of Disposition: 11:58 Quality - Quality Measures Quality Measures: N/A - Blood Pressure Screening View Details: Yes Does Patient Have Any of the Following: No Blood Pressure Classification: Pre-Hypertensive BP Reading Systolic Measurement: 136 Diastolic Measurement: 67 Screening for High Blood Pressure: < Pre-Hypertensive BP, F/U Documented > [ [id number]] Pre-Hypertensive Follow-up Interventions: Referral to alternative/primary care provider.
[2017-03-29] MEDS ORDERED: SODIUM CHLORIDE 0.9% 500 ML IV ONE (09:27)
[2017-03-29 09:50] LABS: URINE APPEARANCE CLEAR; URINE BILIRUBIN NEGATIVE (NEGATIVE); URINE BLOOD TRACE-I (NEGATIVE); URINE COLOR YELLOW; URINE GLUCOSE (UA) NEGATIVE (NEGATIVE); URINE KETONE NEGATIVE (NEGATIVE); URINE LEUKOCYTE ESTERASE NEGATIVE (NEGATIVE); URINE NITRITE NEGATIVE (NEGATIVE); URINE PROTEIN NEGATIVE (NEGATIVE); URINE UROBILINOGEN 0.2 E.U./dL (0.20 - 1.00)
[2017-03-29 09:51] LABS: BASO % 0.2 % (0-6); EOS % 2.5 % (0-6); HEMATOCRIT 39.3 % (35.0-47.0); HEMOGLOBIN 12.7 gm/dl (11.6-16.0); LYMPH % 19.3 % (16-45); MEAN CELL VOLUME 92.5 fl (81-97); MEAN CORPUSCULAR HEMOGLOBIN 29.9 pg (27-33); MEAN CORPUSCULAR HGB CONC 32.3 g/dl (32-36); MEAN PLATELET VOLUME 9.5 fl (7.4-10.4); PLATELET COUNT 262 K/uL (130-400); RED BLOOD COUNT 4.25 M/uL (3.80-5.40); WHITE BLOOD COUNT W/O DIFF 9.6 K/uL (4.2-12.2)
[2017-03-29 10:03] LABS: URINE BACTERIA FEW; URINE SQUAMOUS EPITHELIAL CELL 0 - 2 /hpf; URINE WBC 0 - 2 (0-2/hpf)
[2017-03-29 10:06] LABS: BLOOD UREA NITROGEN 18 mg/dL (8-23); CREATININE 0.7 mg/dL (0.5-0.9); EST GLOMERULAR FILTRATION RATE > 60 mL/min
[2017-03-29 10:07] LABS: TOTAL PROTEIN 7.1 g/dL (6.6-8.7)
[2017-03-29] MEDS ORDERED: KETOROLAC 30 MG/ML VIAL IVP ONE (10:08)
[2017-03-29 10:09] LABS: GLUCOSE,RANDOM 102 mg/dL (74-109)
[2017-03-29 10:11] LABS: ALT/SGPT 12 U/L (<33); AST/SGOT 14 U/L (10.0-35.0)
[2017-03-29 10:12] LABS: ALBUMIN 3.8 g/dL (4.0-5.0); ALKALINE PHOSPHATASE 63 U/L (35-104); LIPASE 55 U/L (13-60)
[2017-03-29 10:14] LABS: BILIRUBIN,DIRECT < 0.2 mg/dL (0-0.3)
[2017-03-29] MEDS ORDERED: ERTAPENEM SODIUM 1 G in 0.9 % SODIUM CHLORIDE 100ML 100 ML IVPB ONE (10:34)
--- NOTE | 2017-03-30 06:04 | CT SCAN REPORT ---
DATE: 03/29/2017 at 0948. EXAM: CT OF THE ABDOMEN AND PELVIS WITHOUT CONTRAST. HISTORY: Abdominal pain and pressure in the pelvis, worsening with bowel movements and urinating. This has been present since Sunday. TECHNIQUE: Helical CT examination of the abdomen and pelvis was performed without oral or intravenous contrast administration. Lack of oral and intravenous contrast utilization limits evaluation of the bowel and solid viscera, respectively. COMPARISON: CT of the chest without contrast date 08/09/2016. FINDINGS: Minimal atelectasis suggested within the left lung base. Linear scarring versus atelectasis is also present in the left lung base. No pleural or pericardial effusion. The heart is not enlarged. No suspicious focal abnormality is demonstrated within the liver, spleen, pancreas, nor adrenal glands. The gallbladder is surgically absent, and no biliary ductal dilatation is seen. The kidneys are normal in position and smoothly marginated. Bilateral nephrolithiasis is present. There is a 1.0 to 2.0 mm nonobstructing calculus in the mid to lower right kidney, and there are a couple of nonobstructing calculi in the lower pole of the right kidney, the largest of which measures 4.0 mm. There is a nonobstructing calculus in the lower pole of the left kidney measuring 5.5 mm in maximum diameter. No other nephrolithiasis nor renal mass. The renal collecting systems are not dilated, and no calculus is demonstrated within either ureter. No intra-abdominal nor retroperitoneal lymphadenopathy. There is mild, diffuse atherosclerosis without evidence of aneurysmal dilatation of the abdominal aorta nor iliac arteries. No definite pelvic mass nor adenopathy. The uterus is near the midline. Evaluation of the urinary bladder is limited due to incomplete distension. There is diverticulosis throughout the left colon. There is segmental wall thickening of the mid sigmoid colon in the midline pelvis with moderate adjacent mesenteric fat stranding extending to the level of the bladder dome. These findings are consistent with acute diverticulitis/colitis. No definite evidence of abscess nor extraluminal air. No evidence of bowel obstruction. The appendix is surgically absent. No lytic or blastic bone lesion. There are degenerative changes scattered throughout the visualized spine. IMPRESSION: 1. DIVERTICULOSIS THROUGHOUT THE LEFT COLON. THERE IS SEGMENTAL WALL THICKENING WITHIN THE SIGMOID COLON AT THE MIDLINE PELVIS LEVEL WITH MODERATE STRANDING OF ADJACENT FAT CONSISTENT WITH ACUTE DIVERTICULITIS/COLITIS. NO DEFINITE ABSCESS NOR EXTRALUMINAL AIR. THIS INFLAMMATORY PROCESS EXTENDS TO THE LEVEL OF THE BLADDER DOME WITH THE BLADDER NOT WELL EVALUATED DUE TO LACK OF DISTENSION. NOT MENTIONED ABOVE IS ASSOCIATED TRACE FREE FLUID IN THE CUL DE SAC. 2. BILATERAL NEPHROLITHIASIS. 3. STATUS POST CHOLECYSTECTOMY AND APPENDECTOMY. 4. MINOR ATELECTASIS IN THE LEFT LUNG BASE. JOB NUMBER: [id number] MTDD
== END 2017-03-29 12:04 | disposition home or self-care (01) ==
LOC: ER 08:49
DX: K57.32 Diverticulitis of large intestine without perforation or abscess without bleeding (principal)
CPT/HCPCS: 99284 ×2; 96374; 96375; 83690; 85025; 80076; 80048; 81001; 74176; J1335; J1885

== ENCOUNTER 2017-08-02 07:48 | Day surgery (SDC) | payer BC ==
[2017-08-02] MEDS ORDERED: LIDOCAINE 2% MDV (20MG/ML) 20ML VIAL IV ONE (07:49)
[2017-08-02] MEDS ORDERED: PROPOFOL 10 MG/ML VIAL IV ONE (07:49)
--- NOTE | 2017-08-03 12:30 | Operative Note ---
DATE OF SURGERY: 08/02/2017 OPERATION: COLONOSCOPY with cold forceps polypectomy. PREOPERATIVE DIAGNOSIS: Family history of colon polyps and personal history of diverticulitis. POSTOPERATIVE DIAGNOSES: 1. Sigmoid diverticulosis. 2. Ascending colon polyp. 3. Questionable inflammatory sigmoid colon polyp. PROCEDURE: After informed consent was obtained from the patient, she was placed in the left lateral decubitus position in the endoscopy suite, sedated and monitored by the department of anesthesia. Digital rectal exam was unremarkable. A well-lubricated [id number] colonoscope was inserted into the rectum and advanced to the cecum. Preparation quality was good to excellent. The cecum, ileocecal valve, and appendiceal orifice were unremarkable. The ascending colon revealed a 4 mm polyp removed with a cold forceps. No excessive bleeding was noted. The remainder of the ascending colon, transverse colon, and descending colon were unremarkable. The sigmoid colon demonstrated [id number] diverticular changes. There was an inflamed/inflammatory polyp in the area of the distal sigmoid colon. This was removed in piecemeal fashion with a cold forceps. No excessive bleeding was noted. The remainder of the sigmoid colon was unremarkable other than the aforementioned diverticular changes. The rectum was unremarkable in forward and in J-turn views. The endoscope was straightened, the rectal ampulla deflated, and the endoscope was removed. RECOMMENDATIONS: I would suggest the patient follow a high-fiber diet. Further recommendations will be forthcoming once tissue histology is available but most likely she will require repeat exam in 5 years. As always, thank you for allowing me to participate in the healthcare of your patients. CC: JESSICA Jennings
== END 2017-08-02 09:35 | disposition home or self-care (01) ==
LOC: HOP 07:48
PROVIDERS: ATTEND Internal Medicine Gastroenterology
DX: Z83.71 Family history of colonic polyps (principal); D12.2 Benign neoplasm of ascending colon; K57.30 Diverticulosis of large intestine without perforation or abscess without bleeding; I10 Essential (primary) hypertension; E03.9 Hypothyroidism, unspecified; J45.909 Unspecified asthma, uncomplicated

== ENCOUNTER 2018-07-20 20:34 | Emergency (ER) | payer BC ==
[2018-07-20] MEDS ORDERED: IBUPROFEN 400 MG TABLET PO ONE (20:48)
--- NOTE | 2018-07-20 20:48 | Emergency Department Record ---
History of Present Illness - General Chief complaint: Extremity Problem Stated complaint: L SHOULDER INURY Time Seen by Provider: 07/20/18 20:46 Source: Patient Mode of Arrival: Ambulatory Limitations: No limitations - History of Present Illness Initial comments: 62 yo female presents to ED for evaluation of left shoulder pain while lifting heavy boxes 4 days ago. Patient reports taking Tylenol and Naprosyn without improvement in her symptoms. Patient reports "shooting" pain from posterior aspect of the shoulder down to the elbow. Patient denies numbness, tingling, or weakness symptoms. MD Complaint: Joint pain Onset/Timin -: Days(s) Location: Left, Shoulder History of Same: No -: Yes Arthralgia Radiation: Distal Quality: Aching Consistency: Constant Improves with: Nothing Worsens with: Rest Associated Symptoms: Denies other symptoms - Related Data Home Medications Medication Instructions Recorded Confirmed Last Taken Magnesium Oxide [Magnesium] 500 mg PO DAILY 07/20/18 07/20/18 07/20/18 Previous Rx's Medication Instructions Recorded Ibuprofen [Motrin] 800 mg PO Q6H PRN #30 tab 07/20/18 Allergies Allergy/AdvReac Type Severity Reaction Status Date / Time Iodinated Contrast- Oral and Allergy Severe HIVES Unverified 02/05/18 09:51 IV Dye Penicillins Allergy Severe HIVES Unverified 02/05/18 09:51 bee venom protein (honey bee) Allergy SWELLING Unverified 02/05/18 09:51 (GENERAL) Review of Systems Constitutional: Denies: Chills, Fever, Malaise, Night sweats Eyes: Denies: Eye discharge, Eye pain ENT: Denies: Congestion, Ear pain, Epistaxis Respiratory: Denies: Cough, Dyspnea Cardiovascular: Denies: Chest pain, Dyspnea on exertion Endocrine: Denies: Fatigue, Heat or cold intolerance Gastrointestinal: Denies: Abdominal pain, Nausea, Vomiting Genitourinary: Denies: Incontinence, Retention Musculoskeletal: Reports: Arthralgia. Denies: Back pain Skin: Denies: Bruising, Change in color Neurological: Denies: Abnormal gait, Confusion, Headache, Seizure Psychiatric: Denies: Anxiety Hematological/Lymphatic: Denies: Anemia, Blood Clots Past Medical History - SOCIAL HISTORY Smoking Status: Former smoker - RESPIRATORY Hx Respiratory Disorders: Yes Hx Asthma: Yes (allergy induced) Hx Bronchitis: Yes (hx) Hx Pneumonia: Yes Hx Sleep Apnea: Yes (resolved) Hx of CPAP: Yes (does not use) - CARDIOVASCULAR Hx Cardio Disorders: Yes Hx Edema: Yes (hx) Hx Hypertension: Yes (well controlled with rx) Hx Irregular Heartbeat: Yes (flutters-long time ago) - NEURO Hx Neuro Disorders: Yes Hx Headaches: Yes (migraine) Hx of Migraines: Yes - GI Hx GI Disorders: Yes Hx Diverticulitis: Yes (05/2017) Hx Reflux: Yes (resolved) Hx Ulcer: Yes Hx Wt Loss/Wt Gain: Yes Hx of Polyps: Yes Comment:: weight loss 100 lbs in 1 year, with [facility] - Hx Genitourinary Disorders: No Comment:: . - ENDOCRINE Hx Endocrine Disorders: Yes Hx Diabetes: No (.) Hx Thyroid Disease: Yes Comment:: thyroid removed, takes meds - MUSCULOSKELETAL Hx Musculoskeletal Disorders: No - PSYCH Hx Psych Problems: No Hx Depression: Yes - HEMATOLOGY/ONCOLOGY Hx Hematology/Oncology Disorders: No Hx Anemia: Yes Hx Bruising: Yes (bruises easily) Hx Cancer: Yes (melanoma lt inner thigh removed 2015) Family Medical History Family Hx Comment (NOT TO BE USED IN PLACE OF ITEMS BELOW): father-colon polyps Hx Cancer: Grandparents *Cancer Comment: grandfather Hx HTN: Father, Mother Hx Kidney Disease: Father *Kidney Comment: kidney stones Physical Exam - General General Appearance: Alert, Oriented x3, Cooperative, Mild distress Limitations: No limitations - Head Head exam: Atraumatic, Normocephalic, Normal inspection Head exam detail: negative: Abrasion, Contusion, Low's sign, General tenderness, Hematoma, Laceration - Eye Eye exam: Normal appearance. negative: Conjunctival injection, Periorbital swelling, Periorbital tenderness, Scleral icterus - ENT Ear exam: negative: Auricular hematoma, Auricular trauma Nasal Exam: negative: Active bleeding, Discharge, Dried blood, Foreign body Mouth exam: negative: Drooling, Laceration, Muffled voice, Tongue elevation - Neck Neck exam: Normal inspection. negative: Meningismus, Tenderness - Respiratory Respiratory exam: Normal lung sounds bilaterally. negative: Rales, Respiratory distress, Rhonchi, Stridor - Cardiovascular Cardiovascular Exam: Regular rate, Normal rhythm, Normal heart sounds Peripheral Pulses: 3+: Radial (R) - GI/Abdominal GI/Abdominal exam: Soft. negative: Rebound, Rigid, Tenderness - Rectal Rectal exam: Deferred - exam: Deferred - Extremities Extremities exam: Tenderness, Other (Patient has pain with palpation to the supraspinatus region of the left posterior shoulder, limited ROM above the horizontal plane with pain, no pain with ROM of the elbow/wrist. Compartments of the forearm and upper arm are soft on examination.). negative: Calf tenderness, Pedal edema - Back Back exam: Denies: CVA tenderness (R), CVA tenderness (L) - Neurological Neurological exam: Alert, Normal gait, Oriented X3 - Psychiatric Psychiatric exam: Normal affect, Normal mood - Skin Skin exam: Normal color. negative: Abrasion Type of lesion: negative: abrasion Course - Reevaluation(s) Reevaluation #1: 07/20/18 20:53 Patient was seen and examined Symptoms appear consistent with supraspinatus strain or partial tear Will treat with sling, Motrin 800 mg, and orthopedic follow-up in the [facility] next Sunday. Patient is in agreement with the plan of care as discussed. Disposition Disposition: Discharge Clinical Impression: Left shoulder strain Qualifiers: Encounter type: initial encounter Qualified Code(s): S46.912A - Strain of unspecified muscle, fascia and tendon at shoulder and upper arm level, left arm , initial encounter Disposition: Home, Self-Care Condition: (2) Stable Instructions: Rotator Cuff Tendinitis (ED) Additional Instructions: Return to ED if your symptoms worsen or if you have any concerns. Motrin 800mg as directed. Follow-up with Dr. Rosa in the [facility] next week Sunday. Prescriptions: Ibuprofen [Motrin] 800 mg PO Q6H PRN #30 tab PRN Reason: Pain - Mod To Severe (5-10) Referrals: KAREN ROSA [DOCTOR OF OSTEOPATH] - [facility] [Provider Group] Forms: Patient Portal Access Time of Disposition: 20:48 Quality - Quality Measures Quality Measures: N/A - Blood Pressure Screening Does Patient Have Any of the Following: No Blood Pressure Classification: Hypertensive Reading Systolic Measurement: 166 Diastolic Measurement: 95 Screening for High Blood Pressure: < First Hypertensive BP, F/U Documented > [ [id number]] First Hypertensive Follow-up Interventions: Referral to alternative/primary care provider.
== END 2018-07-20 21:08 | disposition home or self-care (01) ==
LOC: ER 20:34
DX: S46.912A Strain of unspecified muscle, fascia and tendon at shoulder and upper arm level, left arm, initial encounter (principal); M25.512 Pain in left shoulder; M54.2 Cervicalgia; X50.0XXA Overexertion from strenuous movement or load, initial encounter; I10 Essential (primary) hypertension; Z87.891 Personal history of nicotine dependence
CPT/HCPCS: 99282; 99283